=== PATIENT | female | born 1980 | race Caucasian/White ===

== ENCOUNTER 2022-03-12 14:24 | Emergency (ER) | payer OTHER ==
[2022-03-12 14:39] VITALS: BP 153/95; PULSE 75; RESP 18; TEMP 98.3; BMI 25.0
[2022-03-12 16:45] LABS: BASO % 0.6 % (0-2.0); EOS % 0.8 % (0-4.5); HEMATOCRIT 39.1 % (32.4-45.2); HEMOGLOBIN 12.9 GM/dL (10.7-15.3); LYMPH % 29.4 % (8-40); MCH 26.1 pg (25.7-33.7); MEAN CELL VOLUME 79.1 fl (80-96); MEAN PLT VOLUME 8.8 fl (7.5-11.1); NEUT % 63.2 % (42.8-82.8); PLATELET COUNT 323 10^3/uL (134-434); RBC 4.94 M/mm3 (3.60-5.2); RDW 15.8 % (11.6-15.6); WHITE BLOOD COUNT 8.1 K/mm3 (4.0-10.0)
[2022-03-12 16:54] LABS: EPI CELLS 1 /uL (0-25.1); HYALINE CASTS 0 /uL (0-3.1); URINE APPEARANCE CLEAR; URINE BACTERIA 15 /uL (0-1359); URINE BILIRUBIN NEGATIVE (NEGATIVE); URINE COLOR YELLOW; URINE GLUCOSE (UA) NEGATIVE (NEGATIVE); URINE KETONE NEGATIVE (NEGATIVE); URINE LEUK ESTERASE NEGATIVE (NEGATIVE); URINE NITRITE NEGATIVE (NEGATIVE); URINE PROTEIN NEGATIVE (NEGATIVE); URINE RBC 2 /uL (0-23.9); URINE UROBILINOGEN 0.2 mg/dL (0.2-1.0); URINE WBC 1 /uL (0-25.8)
[2022-03-12 16:56] LABS: BLOOD UREA NITROGEN 8.4 mg/dL (7-18); CALCIUM 9.2 mg/dL (8.5-10.1)
[2022-03-12 16:57] LABS: ALBUMIN 3.6 g/dl (3.4-5.0)
[2022-03-12 17:00] LABS: CREATININE 0.7 mg/dL (0.55-1.3)
[2022-03-12 17:01] LABS: BILIRUBIN,TOTAL 0.4 mg/dL (0.2-1); TOT PROT 7.8 g/dl (6.4-8.2)
== END 2022-03-12 19:00 | disposition home or self-care (01) ==
LOC: JER 14:24
DX: O46.91 Antepartum hemorrhage, unspecified, first trimester (principal); Z3A.01 Less than 8 weeks gestation of pregnancy
CPT/HCPCS: 36415; 76817-TC; 80053; 81003; 84702; 85025; 86850; 86900; 86901; 87086; 87491; 87591; 99284-25

== ENCOUNTER 2022-03-14 14:46 | Emergency (ER) | payer OTHER ==
[2022-03-14 14:54] VITALS: BP 131/88; PULSE 86; RESP 18; TEMP 98.2; BMI 24.2
== END 2022-03-14 16:45 | disposition home or self-care (01) ==
LOC: JERFT 14:46
DX: O46.91 Antepartum hemorrhage, unspecified, first trimester (principal); Z3A.01 Less than 8 weeks gestation of pregnancy
CPT/HCPCS: 36415; 84702; 99283-25

== ENCOUNTER 2022-05-12 04:13 | Day surgery (SDC) | payer OTHER ==
[2022-05-06 16:48] VITALS: BMI 26.7
[2022-05-12] MEDS ORDERED: BUPIVACAINE HCL/PF 0.25% (2.5MG/ML) 10 ML VIAL ONE (12:38)
[2022-05-12] MEDS ORDERED: SUCCINYLCHOLINE CHLORIDE 200 MG/10 ML SYRINGE ONE (13:41)
[2022-05-12] MEDS ORDERED: PROPOFOL 40 ML ONE (13:41)
[2022-05-12] MEDS ORDERED: MIDAZOLAM HCL 2 MG/2 ML SINGLE DOSE VIAL ONE (13:41)
[2022-05-12] MEDS ORDERED: BUPIVACAINE HCL/PF 0.5% (5 MG/ML) 30 ML VIAL IJ ONE (14:52)
[2022-05-12] MEDS ORDERED: BUPIVACAINE HCL/PF 2.5 MG/ML - 30 ML VIAL IJ ONE (14:52)
[2022-05-12] MEDS ORDERED: ONDANSETRON 4 MG/2 ML VIAL IVPUSH PRN (15:32)
[2022-05-12] MEDS ORDERED: oxyCODONE HCL 5 MG TABLET PO PRN (15:32)
[2022-05-12] MEDS ORDERED: ACETAMINOPHEN 325 MG TABLET (FP) PO PRN (15:32)
[2022-05-12 17:43] VITALS: RESP 18; TEMP 97.7
[2022-05-12 18:03] VITALS: BP 128/78; PULSE 83
== END 2022-05-12 18:10 | disposition home or self-care (01) ==
LOC: JASU-SURG 04:13
PROVIDERS: ATTEND Obstetrics & Gynecology
PROC: 0UB74ZZ Excision of Bilateral Fallopian Tubes, Percutaneous Endoscopic Approach (ICD-10-PCS; principal; 2022-05-12 15:30)
DX: Z30.2 Encounter for sterilization (principal)
CPT/HCPCS: 81025; 88302-TC; 94760

== ENCOUNTER 2023-06-02 08:29 | Emergency (ER) | payer OTHER ==
[2023-06-02 08:37] VITALS: BP 138/95; PULSE 99; RESP 18; TEMP 98.6; BMI 32.5
== END 2023-06-02 09:48 | disposition home or self-care (01) ==
LOC: JERFT 08:29
DX: H10.33 Unspecified acute conjunctivitis, bilateral (principal)
CPT/HCPCS: 99283-25

== ENCOUNTER 2023-06-08 21:49 | Emergency (ER) | payer OTHER ==
[2023-06-08 21:53] VITALS: BP 139/97; PULSE 83; RESP 20; TEMP 98.8; BMI 28.3
[2023-06-08 22:28] LABS: THROAT:GRP A STREP NOT DETECTED (NOTDETECTED)
[2023-06-08] MEDS ORDERED: DEXAMETHASONE SOD PHOSPHATE 10 MG/1 ML VIAL ONE (23:56)
[2023-06-08] MEDS ORDERED: KETOROLAC TROMETHAMINE 30 MG/1 ML VIAL ONE (23:57)
[2023-06-09] MEDS: DEXAMETHASONE LIQUID 0.5 MG/5 ML PO ONE (00:02)
[2023-06-09] MEDS: KETOROLAC TROMETHAMINE 30 MG/1 ML VIAL IM ONE (00:02)
[2023-06-09] MEDS: PENICILLIN V POTASSIUM 500 MG TABLET PO ONE (00:10)
== END 2023-06-09 00:10 | disposition home or self-care (01) ==
LOC: JER 21:49 → JERFT 21:49 → JER 06-09 00:10
PROC: 3E0233Z Introduction of Anti-inflammatory into Muscle, Percutaneous Approach (ICD-10-PCS; principal; 2023-06-08)
DX: J02.9 Acute pharyngitis, unspecified (principal); Z20.822 Contact with and (suspected) exposure to COVID-19
CPT/HCPCS: 0241U-QW; 87651; 99284-25